=== PATIENT | female | born 1990 | race Caucasian/White ===

== ENCOUNTER 2019-02-26 21:48 | Inpatient (IN) | payer BC ==
[~2019-02-26] VITALS: Ht 162.6 cm; Wt 75.0 kg
[2019-02-26] MEDS ORDERED: LACTATED RINGER'S 1,000 ML IV PRN (21:53)
[2019-02-26] MEDS ORDERED: LACTATED RINGER'S 1,000 ML IV SCH (21:53)
[2019-02-26] MEDS ORDERED: MINERAL OIL LIGHT 10 ML VIAL TOP ONE (22:00)
[2019-02-26] MEDS ORDERED: METHYLERGONOVINE 0.2 MG INJ IM PRN ×2 (22:00→23:00)
[2019-02-26] MEDS ORDERED: MISOPROSTOL 200 MCG TAB PR PRN ×2 (22:00→23:00)
[2019-02-26] MEDS ORDERED: AMPICILLIN 2 GM/NS (PMX) 100 ML IV ONE (22:00)
[2019-02-26] MEDS ORDERED: IBUPROFEN 600 MG TAB PO PRN (22:00)
[2019-02-26] MEDS ORDERED: BUTORPHANOL 2 MG INJ IV PRN ×2 (22:00)
[2019-02-26] MEDS ORDERED: OXYTOCIN 30 UNITS/LR 500 ML IV SCH ×3 (22:00→22:34)
[2019-02-26] MEDS ORDERED: LIDOCAINE 1% (MPF) 30 ML INJ INJ PRN (22:00)
[2019-02-26] MEDS ORDERED: OXYTOCIN 30 UNITS/LR 500 ML IV PRN ×2 (22:00→23:00)
[2019-02-26] MEDS ORDERED: CARBOPROST 250 MCG INJ IM PRN ×2 (22:00→23:00)
--- NOTE | 2019-02-26 22:03 | TRIAGE ---
OB Triage Datetime Report Generated by CPN: 02/26/2019 22:02 Datetime: 02/26/2019 22:00 Time of Arrival: 02/26/2019 21:39 EGA: 37.6 Arrived By: Wheelchair Arrived From: Home Chief Complaint: w/ stated previous x2 and no PNC c/o ucs and vag pressure Movement: Present Contractions: Regular Time Contractions Began: 02/26/2019 11:00 Contractions: Q3 Rupture of Membranes: Denies Vaginal Bleeding: Normal Show Vaginal Discharge: Present Recent Sexual Intercouse: Denies Abdominal Trauma: Not Applicable Patient Complaints: Contractions Time Provider Notified: 02/26/2019 21:50 Provider Notified: Dr Doran Initial Plan: EFM,SVE Datetime: 02/26/2019 21:52 Vaginal Exam Dilatation (cms): 9.0 Effacement (%): 100 Station: 0 Exam By: Loi REAGAN Vaginal Bleeding: Normal Show Cervix, Consistency: Soft Cervix, Position: Anterior Presentation 'A': Cephalic
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
[2019-02-26] MEDS: LACTATED RINGER'S 1,000 ML IV* SCH (22:34)
--- NOTE | 2019-02-26 22:34 | LDN ---
Date/Time of Note Date/Time of Note DATE: 02/26/19 TIME: 22:33 Delivery Summary Term gestation Placenta Delivered: Spontaneously Meconium: none Episiotomy: No Anesthesia type: None Estimated blood loss: 200 Sponge & Needle done & correct: Yes All needle counts correct: Yes Any foreign bodies felt in the: No Delivery Information Sex Sex: male Apgars 1 Minute: 9 5 Minute: 9 Suctioning Nose & mouth suctioned at abhijeet: Yes Delee suction performed: No Umbilical Cord Umbilical cord with: 3 Vessels Cord presentations: no nuchal cord Cord Blood was obtained: Yes Mother & Baby Disposition Disposition Baby's weight 3000 g/6 pounds 10 ounces Mom & Baby to Maternity; Good: Yes Baby to NICU: No MEETA HARRISON MD February 26, 2019 22:34
[2019-02-26] MEDS ORDERED: ONDANSETRON 4 MG INJ IV PRN (23:00)
[2019-02-26] MEDS ORDERED: WITCH HAZEL/GLYCERIN PAD PR PRN (23:00)
[2019-02-26] MEDS ORDERED: DIBUCAINE 1% 30 GM OINT TOP PRN (23:00)
[2019-02-26] MEDS ORDERED: LANOLIN HPA 1 PKT TOP PRN (23:00)
[2019-02-26] MEDS ORDERED: MAGNESIUM HYDROXIDE 30ML CUP PO PRN (23:00)
[2019-02-26] MEDS ORDERED: ACETAMINOPHEN 325 MG TAB PO PRN ×2 (23:00)
[2019-02-26] MEDS ORDERED: BENZOCAINE 20% 56 ML SPRAY TOP PRN (23:00)
[2019-02-26] MEDS ORDERED: SENNA/DOCUSATE NA (8.6MG/50MG) TAB PO PRN (23:00)
[2019-02-26 23:18] VITALS: Ht 162.6 cm; Wt 75.0 kg
[2019-02-27] MEDS ORDERED: LABETALOL HCL 20MG INJ IV STA ×2 (00:34→00:46)
[2019-02-27] MEDS ORDERED: AMPICILLIN 1 GM/NS (PMX) 50 ML IV SCH (02:00)
[2019-02-27] MEDS ORDERED: LABETALOL HCL 20MG INJ IV PRN (03:00)
[2019-02-27] MEDS: LABETALOL 100 MG TAB PO SCH ×3 (03:03→21:45)
[2019-02-27] MEDS ORDERED: hydrALAzine 20 MG INJ IV STA (03:35)
[2019-02-27 06:05] VITALS: BP 131/85; PULSE 78; RESP 19
[2019-02-27] MEDS: IBUPROFEN 600 MG TAB PO PRN ×2 (06:06→15:07)
[2019-02-27] MEDS: LACTATED RINGER'S 1,000 ML IV* SCH ×2 (06:34→14:34)
[2019-02-27 08:00] VITALS: BP 129/82; PULSE 72; RESP 18
[2019-02-27 12:00] VITALS: BP 129/76; PULSE 84; RESP 18
[2019-02-27 16:28] VITALS: BP 124/68; PULSE 84; RESP 16
--- NOTE | 2019-02-27 17:50 | PN ---
Date/Time of Note Date/Time of Note DATE: 02/27/19 TIME: 17:39 OB Subjective Subjective Subjective Patient declined breast feeding,Denies any SOB, chest pain, Dizziness or light headadness, Urinated OB Objective Objective Objective GA: A&O, NAD Lungs: CTA Bilaterally CV: RRR Abdomen: Soft.fundus non tender, Firm and at the level of umbilicus Extremities: No calf tenderness, No cord palpable. VS - Last 72 Hours, by Label Date Temp Pulse Resp B/P (MAP) Pulse Ox O2 O2 Flow FiO2 Time Delivery Rate 02/27/19 98.0 84 16 124/68 Room Air 16:28 (86) 02/27/19 18 129/76 Room Air 12:00 (93) 02/27/19 98.4 84 12:00 02/27/19 98.5 72 18 129/82 Room Air 08:00 (98) 02/27/19 98.1 78 19 131/85 Room Air 06:05 (100) Laboratory Tests Test 02/26/19 22:00 02/27/19 00:00 02/27/19 06:23 White Blood Count 12.4 H 12.8 H Red Blood Count 3.55 L 2.49 #L Hemoglobin 11.5 L 8.2 #L Hematocrit 33.9 L 24.0 #L Mean Corpuscular Volume 95.5 96.4 Mean Corpuscular Hemoglobin 32.4 32.9 Mean Corpuscular Hemoglobin Concent 33.9 34.2 Red Cell Distribution Width 12.7 12.8 Platelet Count 168 121 #L Mean Platelet Volume 12.8 H 12.8 H Immature Granulocytes % 0.700 H 0.500 H Neutrophils % 71.3 75.7 Lymphocytes % 20.5 17.0 Monocytes % 6.4 6.2 Eosinophils % 0.6 0.3 Basophils % 0.5 0.3 Nucleated Red Blood Cells % 0.0 0.0 Immature Granulocytes # 0.090 H 0.060 H Neutrophils # 8.9 H 9.7 H Lymphocytes # 2.6 2.2 Monocytes # 0.8 0.8 Eosinophils # 0.1 0.0 Basophils # 0.1 0.0 Nucleated Red Blood Cells # 0.0 0.0 Prothrombin Time 12.2 Prothrombin Time Ratio 1.0 INR International Normalized Ratio 0.89 Activated Partial Thromboplast Time 27.1 Sodium Level 139 Potassium Level 4.5 Chloride Level 108 Carbon Dioxide Level 19 L Anion Gap 12 Blood Urea Nitrogen 4 L Creatinine 0.53 Est Glomerular Filtrat Rate mL/min > 60 Glucose Level 85 Uric Acid 5.1 Calcium Level 9.6 Total Bilirubin 0.5 Direct Bilirubin 0.00 Indirect Bilirubin 0.5 Aspartate Amino Transf (AST/SGOT) 38 Alanine Aminotransferase (ALT/SGPT) 33 Alkaline Phosphatase 447 H Total Protein 7.6 Albumin 3.9 Globulin 3.70 H Albumin/Globulin Ratio 1.05 Hepatitis B Surface Antigen NEGATIVE HIV (1&2) Antibody NEGATIVE Urine Color YELLOW Urine Clarity CLEAR Urine pH 7.0 Urine Specific [place] 1.010 Urine Ketones 1+ H Urine Nitrite NEGATIVE Urine Bilirubin NEGATIVE Urine Urobilinogen NEGATIVE Urine Leukocyte Esterase NEGATIVE Urine Hemoglobin NEGATIVE Urine Glucose NEGATIVE Urine Total Protein NEGATIVE Urine Opiates Screen Negative Urine Barbiturates Negative Urine Amphetamines Screen Positive Urine Benzodiazepines Screen Negative Urine Cocaine Screen Negative Urine Cannabinoids Positive OB Assessment/Plan Other Assessment: PPD #1 s/p Post Doing well KENYATTA BENTON MD February 27, 2019 17:50
[2019-02-27 21:01] VITALS: BP 121/66; PULSE 86; RESP 18
[2019-02-28] MEDS: IBUPROFEN 600 MG TAB PO PRN ×2 (00:19→11:36)
[2019-02-28 04:16] VITALS: BP 130/69; PULSE 81; RESP 18
[2019-02-28 08:00] VITALS: BP 118/72; PULSE 75; RESP 18
[2019-02-28] MEDS: LABETALOL 100 MG TAB PO SCH (08:32)
--- NOTE | 2019-02-28 10:20 | QN ---
Documentation Comment PPD#2 is stable afebrile tolerates diet No VB +BM +voids VS stable Gen NAD Abd soft NT ND Genitalia No blood at perineum --->Discharge plan DIANNA MACDONALD M.D. February 28, 2019 10:20
--- NOTE | 2019-02-28 10:21 | DS ---
Date/Time of Note Date/Time of Note DATE: 02/28/19 TIME: 10:20 Discharge Summary Admission/Discharge Info Admit Date/Time February 26, 2019 at 21:49 Discharge Date/Time 02/28/2019 Discharge Diagnosis Patient Condition: Good Hospital Course uneventful Primary Care Provider Care Physician No Primary Pending Labs Laboratory Tests Test 02/28/19 07:36 White Blood Count 10.1 10^3/ul (4.8-10.8) Red Blood Count 2.35 10^6/ul (4.20-5.40) Hemoglobin 7.4 g/dl (12.0-16.0) Hematocrit 22.9 % (37.0-47.0) Mean Corpuscular Volume 97.4 fl (82.0-101.0) Mean Corpuscular Hemoglobin 31.5 pg (29.0-33.0) Mean Corpuscular Hemoglobin Concent 32.3 g/dl (32.0-37.0) Red Cell Distribution Width 13.2 % (11.5-14.5) Platelet Count 132 10^3/UL (140-415) Mean Platelet Volume 12.5 fl (7.4-10.4) Immature Granulocytes % 0.800 % (0.001-0.429) Neutrophils % 64.9 % (39.0-77.0) Lymphocytes % 25.9 % (15.0-51.0) Monocytes % 6.5 % (0.0-11.0) Eosinophils % 1.6 % (0.0-7.0) Basophils % 0.3 % (0.0-2.0) Nucleated Red Blood Cells % 0.0 /100WBC (0.0-0.0) Immature Granulocytes # 0.080 10^3/ul (0.0-0.031) Neutrophils # 6.6 10^3/ul (1.6-7.5) Lymphocytes # 2.6 10^3/ul (0.8-2.9) Monocytes # 0.7 10^3/ul (0.3-0.9) Eosinophils # 0.2 10^3/ul (0.0-0.5) Basophils # 0.0 10^3/ul (0.0-0.1) Nucleated Red Blood Cells # 0.0 10^3/ul (0.0-0.0) GHAYOORI,DIANNA M.D. February 28, 2019 10:21
[2019-02-28 16:00] VITALS: BP 142/88; PULSE 87; RESP 80
--- NOTE | 2019-03-01 20:07 | DELSUM ---
Delivery Summary A-C Datetime Report Generated by CPN: 03/01/2019 20:07 DELIVERY PERSONNEL Insulation Board Head Saw Operator: Dries, Froylan MATERNAL INFORMATION Delivery Anesthesia: None Medications in Delivery: LR WITH 30 UNITS PITOCIN Delivery QBL (ml): 200 Placenta Cultured: No Maternal Complications: Other Other Maternal Complications: ONLY 2 PNC VISITS, NO RECORDS. DRUG USE. LABOR SUMMARY EDC: 03/13/2019 00:00 No. Babies in Womb: 1 Attempted: No Labor Anesthesia: None LABOR INFORMATION Reason for Induction: Not Applicable Onset of Labor: 02/26/2019 07:00 Complete Dilatation: 02/26/2019 22:00 Oxytocin: N/A Group B Beta Strep: Not Done Antibiotics # of Doses: 1 Antibiotics Time of Last Dose: 02/26/2019 22:00 Steroids Given: None Reason Steroids Not Administered: Not Applicable MEMBRANES Membranes Rupture Method: Artificial Rupture of Membranes: 02/26/2019 22:10 Length of Rupture (hr): 0.00 Amniotic Fluid Color: Clear Amniotic Fluid Amount: Scant Amniotic Fluid Odor: None STAGES OF LABOR Stage 1 hr: 15 Stage 1 min: 0 Stage 2 hr: 0 Stage 2 min: 10 Stage 3 hr: 0 Stage 3 min: 2 Total Time in Labor hr: 15 Total Time in Labor min: 12 VAGINAL DELIVERY Episiotomy: None Laceration Extension: N/A Laceration Type: None Laceration Repair: Not Applicable Initial Vag Sponge Count: 10 Final Vag Sponge Count: 10 Initial Vag Sharps Count: 1 Final Vag Sharps Count: 1 Sponge Count Correct: Yes; Vaginal Sweep Performed Sharps Count Correct: Yes BABY A INFORMATION Delivery Date/Time: 02/26/2019 22:10 Method of Delivery: Vaginal Born in Route : No : N/A Forceps: N/A Vacuum Extraction: N/A Shoulder Dystocia : N/A SHOULDER DYSTOCIA BABY A Delivery Date/Time: 02/26/2019 22:10 PRESENTATION/POSITION BABY A Presentation: Cephalic Cephalic Presentation: Vertex Vertex Position: Left Occipital Anterior Breech Presentation: N/A PLACENTA INFORMATION BABY A Placenta Delivery Time : 02/26/2019 22:12 Placenta Method of Delivery: Spontaneous Placenta Status: Delivered SCORES BABY A Heart Rate 1 min: >100 bpm Resp Effort 1 min: Good Cry Reflex Irritability 1 min: Cough/Sneeze/Pulls Away Muscle Tone 1 min: Active Motion Color 1 min: Body [place], Extremit Blue SCORE 1 MIN: 9 Heart Rate 5 min: >100 bpm Resp Effort 5 min: Good Cry Reflex Irritability 5 min: Cough/Sneeze/Pulls Away Muscle Tone 5 min: Active Motion Color 5 min: Body [place], Extremit Blue SCORE 5 MIN: 9 INFORMATION BABY A Gestational Age at Delivery: 37.6 Gestational Status: Early Term- 37- 38.6 Weeks Outcome : Liveborn Infant Condition : Stable Sex: Male IDENTIFICATION/MEDS BABY A ID Band Number: [id number] ID Band Location: Right Leg; Left Arm Sensor Applied: Yes Sensor Number: [id number] Sensor Location : Cord Clamp Vitamin K Given : Not Given Erythromycin Given: Not Given WEIGHT/LENGTH BABY A Infant Birthweight (gm): 3000 Weight (lb): 6 Weight (oz): 10 Infant Length (in): 19.50 Infant Length (cm): 49.53 CORD INFORMATION BABY A No. Cord Vessels: 3 Nuchal Cord : N/A Cord Blood Taken: Yes Infant Suction: Mouth; Nose ASSESSMENT BABY A Infant Complications: Multiple Variable Decels Physical Findings at Delivery: Within Normal Limits Infant Respirations: Appears Normal Corporate Receptionist/ALS Called : Yes Infant Care By: JUANA DURAN Transferred To: Remains with Mother
== END 2019-02-28 19:50 | disposition home or self-care (01) | DRG 807 ==
LOC: OBT 21:48 → L-D 21:49 → OBT 21:51 → PP1 02-27 05:50
PROVIDERS: ADMIT Obstetrics & Gynecology Gynecology; ATTEND Obstetrics & Gynecology Gynecology
PROC: 10E0XZZ Delivery of Products of Conception, External Approach (ICD-10-PCS; principal; 2019-02-26)
DX: O99.323 Drug use complicating pregnancy, third trimester (principal); F15.90 Other stimulant use, unspecified, uncomplicated; F12.90 Cannabis use, unspecified, uncomplicated; Z3A.37 37 weeks gestation of pregnancy; Z37.0 Single live birth
CPT/HCPCS: 80053; 80307; 81003; 84560; 85025; 85610; 85730; 86592; 86703; 86762; 86850; 86900; 86901; 87340; 88307; 99464; A4310; G0463; J0290; J0360; J0595; J2590; J7120